=== PATIENT | female | born 1965 | race Caucasian/White ===

== ENCOUNTER 2016-10-28 07:17 | Emergency (ER) | payer MEDICAID ==
[~2016-10-28] VITALS: Ht 157.5 cm; Wt 67.2 kg
[2016-10-28 07:23] VITALS: BP 169/97
--- NOTE | 2016-10-28 07:30 | NUR ---
Note undone in EDM - 10/28/16 at 0910 by [email or web address] 51/F BIB FAMILY C/O LEFT ARM, AXILLA, LEFT SIDE ANTERIOR CHEST WALL X 8 DAYS WHILE PAINTING FELL WITH ARM EXTENDED ; PRESSURE, PALPITATIONS, SHARP PAIN . VISITED HER PMD 5 DAYS AGO--PAIN CONTINUES. HX OF ARTHRITIS, HTN, HYPERLIPIDEMIA. DENIES N/V/D; SKIN IS PINK/WARM/DRY; AAOX4 WITH EVEN AND STEADY GAIT; LUNGS CLEAR BL; HR EVEN AND REGULAR; PT DENIES ANY FEVER, CP, SOB, OR COUGH AT THIS TIME; PATIENT STATES PAIN OF 6/10 AT THIS TIME; PATIENT POSITIONED FOR COMFORT; HOB ELEVATED; BEDRAILS UP X2; BED DOWN. ER MD MADE AWARE OF PT STATUS.
--- NOTE | 2016-10-28 07:30 | NUR ---
51/F BIB SELF C/O LEFT ARM, AXILLA, LEFT SIDE ANTERIOR CHEST WALL PAIN X 8 DAYS WHILE PAINTING FELL WITH ARM EXTENDED ; PRESSURE, PALPITATIONS, SHARP PAIN . VISITED HER PMD 5 DAYS AGO--PAIN CONTINUES. HX OF ARTHRITIS, HTN, HYPERLIPIDEMIA. DENIES N/V/D; SKIN IS PINK/WARM/DRY; AAOX4 WITH EVEN AND STEADY GAIT; LUNGS CLEAR BL; HR EVEN AND REGULAR; PT DENIES ANY FEVER, CP, SOB, OR COUGH AT THIS TIME; PATIENT STATES PAIN OF 6/10 AT THIS TIME; PATIENT POSITIONED FOR COMFORT; HOB ELEVATED; BEDRAILS UP X2; BED DOWN. ER MD MADE AWARE OF PT STATUS.
[2016-10-28 07:51] LABS: EOSINOPHILS # (AUTO) 0.2 K/uL (0-0.4); WHITE BLOOD COUNT (AUTO) 4.6 K/uL (4.8-10.8)
[2016-10-28] MEDS ORDERED: KETOROLAC 60 MG/2 ML VIAL IM ONE (08:00)
--- NOTE | 2016-10-28 08:04 | NUR ---
EKG DONE AT BEDSIDE.
--- NOTE | 2016-10-28 08:05 | NUR ---
PT TAKEN TO [facility] VIA W/C ACCOMPANIED BY [facility].
[2016-10-28 08:08] LABS: ANION GAP 11.6 (8-16); CALCIUM 8.5 mg/dL (8.5-10.1); CARBON DIOXIDE 28.1 mmol/L (21-32); CREATININE 0.8 mg/dL (0.6-1.3); POTASSIUM 3.7 mmol/L (3.5-5.1); TOTAL BILIRUBIN 0.3 mg/dL (0.0-1.0); TOTAL PROTEIN, SERUM 8.1 g/dL (6.4-8.2)
--- NOTE | 2016-10-28 08:17 | NUR ---
PT BACK FROM [facility].
--- NOTE | 2016-10-28 08:18 | NUR ---
L ARM & L CHEST PAIN 6/10. ADMINISTERED MED ORDER. PT TOLERATED PROCEDURE WELL.
[2016-10-28 08:20] LABS: BASOPHILS # (AUTO) 0.1 K/uL (0.00-0.22); EOSINOPHILS % (AUTO) 3.3 % (0.0-4.0); HEMATOCRIT 42.9 % (36-48); HEMOGLOBIN 13.6 g/dL (12.0-16.0); LYMPHOCYTES # (AUTO) 1.6 K/uL (2.5-16.5); LYMPHOCYTES % (AUTO) 34.8 % (20.5-51.1); MEAN CORPUSCULAR HEMOGLOBIN 25 pg (27-31); MEAN CORPUSCULAR HGB CONC 32 g/dL (33-37); MEAN CORPUSCULAR VOLUME 79 fL (80-94); MONOCYTES # (AUTO) 0.3 K/uL (0.8-1.0); MONOCYTES % (AUTO) 6.6 % (1.7-9.3); NEUTROPHILS # (AUTO) 2.4 K/uL (1.8-7.7); NEUTROPHILS % (AUTO) 53.3 % (42.2-75.2); PLATELET COUNT (AUTO) 180 K/uL (140-450); RED BLOOD CELL COUNT(AUTO) 5.46 MIL/uL (4.20-5.40); RED CELL DISTRIBUTION WIDTH 12.1 % (11.6-13.7)
--- NOTE | 2016-10-28 08:20 | NUR ---
PT AMB TO RESTROOM.
[2016-10-28 08:26] LABS: INR 1.1 (0.8-1.2); PARTIAL THROMBOPLASTIN TIME 28.4 secs (22-35.6); PROTHROMBIN TIME 10.8 secs (10.8-13.4)
--- NOTE | 2016-10-28 08:35 | NUR ---
PAIN 3/10.Patient appears to be resting comfortably in bed. BP 146/89; DENIES HEADACHE OR DIZINESS, MD AWARE. Respirations even and unlabored.WILL CONTINUE TO MONITOR.
--- NOTE | 2016-10-28 09:01 | NUR ---
ER MD DR HAMMONDS REEVALUATING PT AT BEDSIDE.
[2016-10-28 09:25] VITALS: BP 131/87
== END 2016-10-28 09:25 | disposition home or self-care (01) ==
LOC: MED 07:17
DX: S46.912A Strain of unspecified muscle, fascia and tendon at shoulder and upper arm level, left arm, initial encounter (principal); S50.02XA Contusion of left elbow, initial encounter; R07.89 Other chest pain; I10 Essential (primary) hypertension; W01.0XXA Fall on same level from slipping, tripping and stumbling without subsequent striking against object, initial encounter; Y93.89 Activity, other specified; Y92.89 Other specified places as the place of occurrence of the external cause; Y99.8 Other external cause status
CPT/HCPCS: 36415; 71010; 73030; 73080; 80053; 81002; 81025; 83880; 84484; 85025; 85610; 85730; 96372; 99285; J1885; Q0092